=== PATIENT | female | born 1935 ===

== ENCOUNTER 2017-02-10 17:56 | Emergency (ER) | payer MEDICARE ==
--- NOTE | 2017-02-10 18:46 | UC ---
Eye Complaint HPI - HPI Summary HPI Summary: 82 year old female presents with complains of bilateral red eyes. - History of Current Complaint Stated Complaint: BILATERAL EYE Time Seen by Provider: 02/10/17 18:46 Hx Obtained From: Patient Onset/Duration: Sudden Onset Timing: Constant Severity Initially: Moderate Severity Currently: Moderate Pain Scale Used: 0-10 Numeric - 5 - Allergies/Home Medications Allergies/Adverse Reactions: Allergies Allergy/AdvReac Type Severity Reaction Status Date / Time Benzalkonium Chloride Allergy See Comment Verified 02/10/17 18:54 [From Travatan] Travoprost [From Travatan] Allergy See Comment Verified 02/10/17 18:54 Home Medications: Home Medications Aspirin EC Low Dose* [Ecotrin EC Low Dose 81 MG*] 81 mg PO DAILY 02/10/17 [ History Confirmed 02/10/17] Ergocalciferol CAP* [Drisdol CAP*] 50,000 unit PO ONCE 02/10/17 [History Confirmed 02/10/17] Phenylephrine-Chlorpheniramine [Yi-Bland Plus Cold &] 1 tab PO DAILY [History Confirmed 02/10/17] Teriparatide (Recombinant) [Forteo] 600 mcg SC DAILY 02/10/17 [History Confirmed 02/10/17] PMH/Surg Hx/FS Hx/Imm Hx Previously Healthy: Yes - Surgical History Surgical History: Yes Surgery Procedure, Year, and Place: appy. mastectomy - Family History Known Family History: Positive: Hypertension - Social History Alcohol Use: None Substance Use Type: None Smoking Status (MU): Former Smoker When Did the Patient Quit Smoking/Using Tobacco: 1960's Review of Systems Constitutional: Negative Skin: Negative Eyes: Eye Redness ENT: Negative Respiratory: Negative Cardiovascular: Negative Gastrointestinal: Negative Genitourinary: Negative Motor: Negative Neurovascular: Negative Musculoskeletal: Negative Neurological: Negative Psychological: Negative All Other Systems Reviewed And Are Negative: Yes Physical Exam Triage Information Reviewed: Yes Vital Signs Reviewed: Yes Eyes: Positive: Conjunctiva Inflamed ENT Exam: Normal Dental Exam: Normal Neck exam: Normal Neck: Positive: 1 Respiratory Exam: Normal Cardiovascular Exam: Normal Abdominal Exam: Normal Musculoskeletal Exam: Normal Neurological Exam: Normal Psychological Exam: Normal Skin Exam: Normal Eye Complaint Course/Dx - Differential Dx/Diagnosis Provider Diagnoses: conjunctivitis Discharge - Discharge Plan Condition: Stable Disposition: HOME Prescriptions: Erythromycin OPTH OINT* [Erythromycin 0.5% OPTH OINT*] 1 applic BOTH EYES TID # 2 tube Guaifenesin-Codeine [Cheratussin AC] 1 teasp PO BEDTIME PRN #120 ml MDD 5 ml PRN Reason: Cough LoraTADine TAB(NF) [Claritin 10 MG TAB(NF)] 10 mg PO DAILY #30 tab Patient Education Materials: Allergic Rhinitis (ED), Eye Pain (ED) Referrals: Samson Reilly MD [Medical Doctor] - Henrique Beckford DC [Doctor of Chiropractic] -
[2017-02-10 19:32] VITALS: BP 167/73
== END 2017-02-10 19:31 | disposition home or self-care (01) ==
LOC: UCCORT 17:56
DX: H10.33 Unspecified acute conjunctivitis, bilateral (principal); Z88.8 Allergy status to other drugs, medicaments and biological substances; Z87.891 Personal history of nicotine dependence
CPT/HCPCS: 87651; 99212; G0463

== ENCOUNTER 2018-09-09 07:09 | Day surgery (SDC) | payer MEDICARE ==
[~2018-09-09 07:09] MED LIST: Acetaminophen TAB* 325 MG PO PRN; Buffered Lidocaine 1% SYRIN* 1 ML/SYRINGE INTRADERM ONE
[2018-09-09] MEDS ORDERED: Midazolam* 1 MG/ML 2 ML VIAL (2 MG) ONE (09:12)
[2018-09-09 09:51] VITALS: BP 128/60
--- NOTE | 2018-09-09 10:01 | OP ---
OPERATIVE NOTE: DATE OF OPERATION: 09/09/18 DATE OF : 37 SURGEON: Shyam Bauman M.D. PREOPERATIVE DIAGNOSIS: Cataract and glaucoma, left eye. POSTOPERATIVE DIAGNOSIS: Cataract and glaucoma, left eye. OPERATIVE PROCEDURE: Extracapsular cataract extraction with intraocular lens implant and iStent, lef t eye. PROCEDURE: The patient was brought to the operating room after being given 1/2% Alcaine with epineph rine drops in the preoperative area. The eye was prepped and draped in the usual sterile fashion. S terile drape and eyelid speculum were placed. Again, topical 1/2% Alcaine with epinephrine was given . A paracentesis incision was made at the 3 o'clock position with the No.75 blade. Clear cornea inc ision 2.2 x 2.2-mm was created at the 6 o'clock position starting at the anterior limbus using the 2. 2-mm keratome. The anterior chamber was irrigated with 0.4 mL of 1% non-preservative intracameral li docaine and filled with DisCoVisc. A capsulorrhexis was completed using the cystotome and the Utrata forceps. Hydrodissection was performed with balanced salt solution. The lens nucleus was removed wi th the Phacoemulsification handpiece without incident. Cortex was removed with the irrigation-aspira tion handpiece. The capsular bag was re-inflated using DisCoVisc and an SN60WF 20.5 implant was inse rted with the shooter followed by an iStent inserted at the 4 o'clock and 10 o'clock position with it s shooter. The irrigation-aspiration handpiece was used to remove all residual DisCoVisc. The eye wa s refilled with balanced salt solution and the wound checked and found to be watertight. Topical Max itrol drops were given. [id number]/[facility] #: [id number]
[2018-09-09] MEDS ORDERED: Ketorolac 0.5% OPHTH (NF) 0.5 % 5 ML BTL ONE (14:12)
[2018-09-09] MEDS ORDERED: Neomycin/Polymy/Dex OPTH.SUSP* MAXITROL 0.1% 5 ML ONE (14:12)
[2018-09-09] MEDS ORDERED: Povidone Iodine 5% OPTH* 30 ML BTL ONE (14:12)
[2018-09-09] MEDS ORDERED: acetaZOLAMIDE TAB* 250 MG ONE (14:12)
[2018-09-09] MEDS ORDERED: Lidocaine 1% MPF ** 5 ML VIAL ONE (14:12)
[2018-09-09] MEDS ORDERED: Lidocaine 2% w/ EPI 1:200,000* 20 ML VIAL ONE (14:12)
[2018-09-09] MEDS ORDERED: Proparacaine 0.5% OPHTH.SOL* 15 ML BTL ONE (14:12)
[2018-09-09] MEDS ORDERED: Cyclopentolate 1% OPTH.SOL* 2 ML BTL ONE (14:12)
[2018-09-09] MEDS ORDERED: Phenylephrine OPHTH SOL 2.5%* 2 ML ONE (14:12)
== END 2018-09-09 10:00 | disposition home or self-care (01) ==
LOC: OREAST 07:09
PROVIDERS: ATTEND Specialist
DX: H25.812 Combined forms of age-related cataract, left eye (principal); H40.1221 Low-tension glaucoma, left eye, mild stage; K58.9 Irritable bowel syndrome, unspecified; Z85.3 Personal history of malignant neoplasm of breast; M81.0 Age-related osteoporosis without current pathological fracture
CPT/HCPCS: A9270-GY; C1783; J2250; V2632